=== PATIENT | female | born 1970 | race Caucasian/White ===

== ENCOUNTER → 2016-11-01 08:35 | Outpatient (CLI) | payer BC | END | disposition home or self-care (01) | LOC: D.CT 08:30 | DX: S42.254A Nondisplaced fracture of greater tuberosity of right humerus, initial encounter for closed fracture (principal) ==

== ENCOUNTER → 2017-02-16 16:49 | Outpatient (CLI) | payer BC | END | disposition home or self-care (01) | LOC: D.MAMMO 15:00 | DX: Z12.31 Encounter for screening mammogram for malignant neoplasm of breast (principal) ==

== ENCOUNTER → 2017-02-22 19:34 | Outpatient (CLI) | payer SELFPAY | END | disposition home or self-care (01) | LOC: D.MAMMO 14:00 | DX: R92.8 Other abnormal and inconclusive findings on diagnostic imaging of breast (principal) ==

== ENCOUNTER → 2017-09-07 17:01 | Outpatient (CLI) | payer BC | END | disposition home or self-care (01) | LOC: D.MRI 16:00 | DX: M25.511 Pain in right shoulder (principal) ==

== ENCOUNTER → 2017-09-22 10:36 | Outpatient (CLI) | payer BC | END | disposition home or self-care (01) | LOC: D.MRI 10:30 | DX: M79.601 Pain in right arm (principal) ==